=== PATIENT | male | born 1930 | race Two or more races ===

== ENCOUNTER 2016-11-28 14:29 | Emergency (ER) | payer OTHER ==
[~2016-11-28] VITALS: Ht 182.9 cm; Wt 75.7 kg
[2016-11-28] MEDS ORDERED: CT SWABBABLE VALVE TRANS SET 1 EA INFUS.SET MC ONE (14:31)
[2016-11-28] MEDS ORDERED: IV NS 0.9% 250 ML IV ONE (14:31)
[2016-11-28] MEDS ORDERED: IOHEXOL-300 100 ML VIAL IV ONE (14:31)
[2016-11-28 14:37] LABS: BASOPHILS # (AUTO) 0.1 /CMM (0.0-0.2); BASOPHILS % (AUTO) 1.3 % (0.0-2.0); DIFF TOTAL % 100 %; EOSINOPHILS # (AUTO) 0.2 /CMM (0.0-0.7); EOSINOPHILS % (AUTO) 3.2 % (0.0-6.0); HEMATOCRIT 44 % (39-51); HEMOGLOBIN 14.5 g/dL (13.5-17.5); LYMPHOCYTES # (AUTO) 1.5 /CMM (0.8-4.8); LYMPHOCYTES % (AUTO) 23.3 % (20.0-44.0); MEAN CORPUSCULAR HEMOGLOBIN 32 PG (26.0-33.0); MEAN CORPUSCULAR HGB CONC 33 g/dl (31.0-36.0); MEAN CORPUSCULAR VOLUME 95 fL (80-96); MONOCYTES # (AUTO) 0.6 /CMM (0.1-1.30); MONOCYTES % (AUTO) 8.9 % (2.0-12.0); NEUTROPHILS # (AUTO) 4.2 /CMM (1.8-8.9); NEUTROPHILS % (AUTO) 63.3 % (43.0-81.0); PLATELET COUNT (AUTO) 211 /CMM (150-450); RED BLOOD CELL COUNT(AUTO) 4.59 MIL/uL (4.5-6.0); WHITE BLOOD COUNT (AUTO) 6.6 K/uL (4.3-11.0)
[2016-11-28 14:45] LABS: CALCIUM, SERUM 8.6 mg/dL (8.5-10.1); POTASSIUM 3.9 mmol/L (3.5-5.1)
[2016-11-28 14:48] LABS: INR 1.04 (0.87-1.13); PROTHROMBIN TIME 10.9 SECS (9.5-12.7)
[2016-11-28 14:50] LABS: ALBUMIN 3.6 g/dL (3.4-5.0); BILIRUBIN,DIRECT 0.3 mg/dL (0.0-0.2); BILIRUBIN,TOTAL 1.4 mg/dL (0.2-1.0); INDIRECT BILIRUBIN 1.1 mg/dL (0.0-1.1); TOTAL PROTEIN, SERUM 7.3 g/dL (6.4-8.2)
[2016-11-28 14:53] LABS: TROPONIN I 0.018 ng/mL (0.00-0.056)
[2016-11-28] MEDS ORDERED: ALTEPLASE 1 VIAL ONE (14:56)
[2016-11-28] MEDS ORDERED: ALTEPLASE 100 MG/VIAL VIAL IV ONE (15:00)
[2016-11-28] MEDS ORDERED: ASPIRIN 325 MG TABLET PO ONE (16:00)
[2016-11-28] MEDS ORDERED: ASPIRIN 325 MG TABLET ONE (16:30)
[2016-11-28 19:15] VITALS: BP 145/74
== END 2016-11-28 19:52 | disposition short-term general hospital (02) ==
LOC: ER 14:31
DX: G45.9 Transient cerebral ischemic attack, unspecified (principal)
CPT/HCPCS: 36415; 70450; 70496; 70498; 71010; 80048; 80076; 82962; 84484; 85025; 85730; 93005; 99285; A4606; J2997; J7050; Q9967; Z7610